=== PATIENT | female | born 2000 | race Two or more races ===

== ENCOUNTER 2018-06-08 19:11 | Emergency (ER) | payer SELFPAY ==
[~2018-06-08] VITALS: Ht 160 cm; Wt 59.6 kg
[2018-06-08 19:20] VITALS: BP 126/85
[2018-06-08] MEDS ORDERED: FLUORESCEIN SOD 1 MG TEST STRIP RIGHTEYE ONE (21:30)
[2018-06-08] MEDS ORDERED: TETRACAINE HCL 0.5% OPTH(EYE) SOLN 4ML RIGHTEYE ONE (21:30)
[2018-06-08] MEDS ORDERED: TETANUS-DIPTH-ACEL PERTUSSIS 0.5ML SYRG IM ONE (22:15)
== END 2018-06-08 22:26 | disposition home or self-care (01) ==
LOC: ER 19:11
DX: T15.91XA Foreign body on external eye, part unspecified, right eye, initial encounter (principal); X58.XXXA Exposure to other specified factors, initial encounter; Y93.89 Activity, other specified; Y99.8 Other external cause status; Y92.89 Other specified places as the place of occurrence of the external cause
CPT/HCPCS: 90471; 90715